=== PATIENT | female | born 1980 | race Two or more races ===

== ENCOUNTER 2018-08-10 17:35 | Emergency (ER) | payer OTHER ==
[~2018-08-10] VITALS: Ht 167.6 cm; Wt 89.0 kg
[2018-08-10 17:37] VITALS: BP 115/85
== END 2018-08-10 21:00 | disposition left against medical advice (07) ==
LOC: ER 17:35
DX: Z53.21 Procedure and treatment not carried out due to patient leaving prior to being seen by health care provider (principal)

== ENCOUNTER 2018-11-08 16:03 | Emergency (ER) | payer OTHER ==
[~2018-11-08] VITALS: Ht 167.6 cm; Wt 92.0 kg
[2018-11-08] MEDS ORDERED: SODIUM CHLORIDE 0.9% 1,000 ML IV ONE (18:21)
[2018-11-08] MEDS ORDERED: ONDANSETRON HCL 4MG/2ML INJ IV STA (18:21)
[2018-11-08] MEDS ORDERED: MORPHINE SULFATE 4 MG/ML CPJ (NOT FOR IM USE) IV STA (18:21)
[2018-11-08 19:00] LABS: CHLORIDE 103 mEq/L (98-107)
[2018-11-08 19:01] LABS: BASOPHILS % 0.3 % (0.0-2.0); EOSINOPHILS % 2.9 % (0.0-5.0); HEMATOCRIT. 37.5 % (36.0-48.0); HEMOGLOBIN. 12.7 g/dL (12.0-16.0); LYMPHOCYTES % 15.3 % (20.0-50.0); MEAN CORPUSCULAR HEMOGLOBIN 28.2 pg (28.0-32.0); MEAN CORPUSCULAR VOLUME 83.5 fL (81.0-99.0); MEAN PLATELET VOLUME 9.4 fl (7.4-10.4); MONOCYTES % 8.2 % (2.0-8.0); NEUTROPHILS % 73.3 % (40.0-76.0); PLATELET 209 x1000/uL (130-400); PROTHROMBIN TIME 9.9 sec (9.6-11.0); RED BLOOD CELL COUNT 4.49 mill/uL (4.2-5.4); RED CELL DISTRIBUTION WIDTH 14.8 % (11.6-14.6)
[2018-11-08 19:12] LABS: HCG SCREEN NEGATIVE
[2018-11-08] MEDS ORDERED: POTASSIUM CHLORIDE 20MEQ TABLET SR PO ONE (19:15)
[2018-11-08 19:30] VITALS: BP 144/93
[2018-11-08] MEDS ORDERED: IOHEXOL-300 100 ML BOTTLE ONE (20:09)
== END 2018-11-08 21:38 | disposition home or self-care (01) ==
LOC: ER 16:03
DX: K91.872 Postprocedural seroma of a digestive system organ or structure following a digestive system procedure (principal); E87.6 Hypokalemia; R10.9 Unspecified abdominal pain; J45.909 Unspecified asthma, uncomplicated; Z98.51 Tubal ligation status; Z98.890 Other specified postprocedural states
CPT/HCPCS: 36415; 74177; 80053; 83605; 83690; 84703; 85025; 85610; 96374; 96375; 99284; J2270; J2405; J7030; Q9967